=== PATIENT | male | born 1990 | race Caucasian/White ===

== ENCOUNTER 2018-01-01 06:11 | Emergency (ER) | payer BC ==
[2018-01-01 06:29] VITALS: BP 155/98; PULSE 91; O2SAT 98
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
[2018-01-01 07:27] LABS: Appearance CLEAR (CLEAR); Bilirubin NEGATIVE (NEGATIVE); Blood NEGATIVE Ery/ul (0-5); Glucose NEGATIVE (NEGATIVE); Ketones NEGATIVE (NEGATIVE); Leukocyte Esterase NEGATIVE (NEGATIVE); Nitrite NEGATIVE (NEGATIVE); Protein,Urine Dip NEGATIVE (Negative); Specific Gravity 1.019 (1.005-1.025); Urobilinogen NEGATIVE mg/dL (0-1)
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
== END 2018-01-01 07:57 | disposition home or self-care (01) ==
LOC: ED 06:11
DX: S70.01XA Contusion of right hip, initial encounter (principal); S70.11XA Contusion of right thigh, initial encounter; R10.31 Right lower quadrant pain; V40.5XXA Car driver injured in collision with pedestrian or animal in traffic accident, initial encounter
CPT/HCPCS: 72170; 73552; 81001; 99284

== ENCOUNTER 2018-09-26 00:51 | Emergency (ER) | payer BC | END 2018-09-26 03:02 | disposition home or self-care (01) | LOC: ED 00:51 ==

== ENCOUNTER 2019-05-29 19:25 | Emergency (ER) | payer BC ==
--- NOTE | 2019-05-29 19:53 | ERPHSYRPT ---
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; he has chronic allergy symptoms and thinks this may be his resp symptoms including chest tightness he has had beforebut now has slight temp in 99 range; He denies family hx of ht dx or known CAD himself, but has hptn and some conducting abn on EKGgiving cardiac score of 2 ; Activities at Onset: none Severity of Dyspnea-Max: moderate Severity of Dyspnea-Current: moderate Possible Cause: occasional episodes, allergen exposure Modifying Factors: Improves With: coughing Associated Symptoms: cough, chest pain/discomfort International travel in last 2 weeks: No Allergies/Adverse Reactions: No Known Drug Allergies Allergy (Verified 05/29/19 20:05) Home Medications: Lisinopril 10 mg [Zestril 10 MG] 10 mg PO DAILY 05/29/19 [History] Sertraline HCl 50 mg [Zoloft 50 mg Tablet] 50 mg PO DAILY 05/29/19 [History] Hx Tetanus, Diphtheria Vaccination/Date Given: Yes Hx Influenza Vaccination/Date Given: No Hx Pneumococcal Vaccination/Date Given: No Travel Risk - International Travel Have you traveled outside of the country in past 3 weeks: No (N) Have you or anyone close to you been diagnosed with or: No Do your reside in a community with a known COVID-19 case?: Yes If Yes where:: [facility] - Coronavirus Screening Symptoms experienced: respiratory symptoms (i.e.Cought,shortness of breath) - Review of Systems Constitutional: Fever, No Chills Eyes: No Symptoms Ears, Nose, & Throat: No Symptoms, Nose Congestion Respiratory: Cough, Dyspnea, No Stridor, No Wheezing Cardiac: No Chest Pain, No Edema, No Syncope Abdominal/Gastrointestinal: No Abdominal Pain, No Nausea, No Vomiting, No Diarrhea Genitourinary Symptoms: No Dysuria Musculoskeletal: No Back Pain, No Neck Pain Skin: No Rash Neurological: No Dizziness, No Focal Weakness, No Sensory Changes Psychological: No Symptoms Endocrine: No Symptoms All Other Systems: Reviewed and Negative - Past Medical History Pertinent Past Medical History: Yes Neurological History: No Pertinent History ENT History: No Pertinent History Cardiac History: Hypertension Respiratory History: No Pertinent History Endocrine Medical History: No Pertinent History Musculoskeletal History: No Pertinent History GI Medical History: No Pertinent History History: No Pertinent History Psycho-Social History: Anxiety, Depression Male Reproductive Disorders: No Pertinent History - Past Surgical History Past Surgical History: Yes Genitourinary: No Pertinent History Musculoskeletal: Other Male Surgical History: No Pertinent History Other Surgical History: Lymph node removal of right breast, carpal tunnel surgery left wrist - Social History Smoking Status: Never smoker Exposure to second hand smoke: No Drug Use: none Patient Lives Alone: No - Nursing Vital Signs Nursing Vital Signs: Initial Vital Signs Temperature 99.2 F 05/29/19 19:26 Pulse Rate 87 05/29/19 19:26 Respiratory Rate 18 05/29/19 19:26 Blood Pressure 148/97 05/29/19 19:26 O2 Sat by Pulse Oximetry 98 05/29/19 19:26 Pain Scale Pain Intensity 0 - Physical Exam General Appearance: no apparent distress, alert Eye Exam: PERRL/EOMI Ears, Nose, Throat Exam: nasal congestion Neck Exam: normal inspection, supple Respiratory Exam: normal breath sounds, lungs clear, airway intact, No crackles/ rales, No rhonchi, No wheezing, No stridor Cardiovascular/Chest Exam: normal heart sounds, regular rate/rhythm Abdominal/Gastrointestinal Exam: soft, No tenderness, No distention, No mass Extremity Exam: non-tender, normal range of motion, normal inspection, no calf tenderness, no pedal edema Peripheral Pulses Exam: carotid (R): 2+, carotid (L): 2+, femoral (R): 2+, femoral (L): 2+, dorsalis-pedis (R): 2+, dorsalis-pedis (L): 2+ Neurologic Exam: alert, oriented x 3, cooperative, manager of compliance II-XII nml as tested, sensation nml, No motor deficits Skin Exam: normal color, warm, No dry SpO2 Interpretation: normal O2 Delivery: Room Air - Course Nursing assessment & vital signs reviewed: Yes EKG Interpreted by Me: NORMAL AXIS, LAFB, Right Bundle Branch Block - Radiology Exams Chest X-ray Interpretation: Reviewed by me, Infiltrates (mild patchy bilateral infiltrates vs granulomata) Ordered Tests: Active Orders 24 hr Category Date Time Status [employer] Work[employer] STAT Care 05/29/19 20:02 Active EKG-ER Only STAT Care 05/29/19 20:02 Active IV Insertion STAT Care 05/29/19 20:01 Active IV Insertion-2nd Peripheral STAT Care 05/29/19 20:01 Active Isolation, Initiate & Maintain Q12H Care 05/29/19 20:05 Active Pulse Oximetry (ED) STAT Care 05/29/19 19:55 Active CHEST 1 VIEW (PORTABLE) Stat Exams 05/29/19 19:57 Taken CBC W DIFF Stat Lab 05/29/19 20:04 Completed CMP Stat Lab 05/29/19 20:04 Completed D-DIMER QUANTITATIVE Stat Lab 05/29/19 20:04 Completed NT PRO BNP Routine Lab 05/29/19 20:04 Completed TROPONIN Q3H Lab 05/29/19 20:04 Completed TROPONIN Q3H Lab 05/29/19 23:00 Ordered TROPONIN Q3H Lab 05/30/19 02:00 Ordered TROPONIN Q3H Lab 05/30/19 05:00 Ordered TROPONIN Q3H Lab 05/30/19 08:00 Ordered Medication Summary Discontinued Medications Generic Name Dose Route Start Last Admin Trade Name Lonnieq PRN Reason Stop Dose Admin Azithromycin 500 mg 05/29/19 20:44 05/29/19 20:46 Zithromax 250 Mg Tablet PO 05/29/19 20:45 500 mg STAT ONE Administration Azithromycin Confirm 05/29/19 20:45 Zithromax 250 Mg Tablet Administered 05/29/19 20:46 Dose 500 mg .ROUTE .STK-MED ONE Lab/Rad Data: Laboratory Result Diagrams 05/29/19 20:04 05/29/19 20:04 Laboratory Results 05/29/19 05/29/19 05/29/19 Range/Units 20:04 20:04 20:04 WBC (4.0-10.5) K/mm3 RBC (4.1-5.6) M/mm3 Hgb (12.5-18.0) gm/dl Hct (42-50) % MCV (78-100) fl MCH (26-32) pg MCHC (32-36) g/dl RDW (11.5-14.0) % Plt Count (150-450) K/mm3 MPV (7.5-11.0) fl Gran % (36.0-66.0) % Eos # (Auto) (0-0.5) Absolute Lymphs (auto) (1.0-4.6) Absolute Monos (auto) (0.0-1.3) Lymphocytes % (24.0-44.0) % Monocytes % (0.0-12.0) % Eosinophils % (0.00-5.0) % Basophils % (0.0-0.4) % Absolute Granulocytes (1.4-6.9) Basophils # (0-0.4) D-Dimer (215-500) ng/mL Sodium 142 (137-145) mmol/L Potassium 3.7 (3.5-5.1) mmol/L Chloride 105 (98-107) mmol/L Carbon Dioxide 28 (22-30) mmol/L Anion Gap 12.9 (5-15) MEQ/L BUN 16 (9-20) mg/dL Creatinine 1.11 (0.66-1.25) mg/dL Estimated GFR > 60.0 ML/MIN Glucose 99 (74-106) mg/dL Calcium 9.6 (8.4-10.2) mg/dL Total Bilirubin 0.40 (0.2-1.3) mg/dL AST 27 (17-59) U/L ALT 39 (0-50) U/L Alkaline Phosphatase 49 (38-126) U/L Troponin I (0.000-0.034) ng/mL NT-Pro-B Natriuret Pep (0-450) pg/mL Serum Total Protein 7.9 (6.3-8.2) g/dL Albumin 4.5 (3.5-5.0) g/dL Influenza Type A Ag NEGATIVE (NEGATIVE) Influenza Type B Ag NEGATIVE (NEGATIVE) RSV (PCR) NEGATIVE (Negative) Group A Strep Antibody NOT DETECTED (NEGATIVE) 05/29/19 05/29/19 05/29/19 Range/Units 20:04 20:04 20:04 WBC 6.1 (4.0-10.5) K/mm3 RBC 5.30 (4.1-5.6) M/mm3 Hgb 16.3 (12.5-18.0) gm/dl Hct 46.9 (42-50) % MCV 88.5 (78-100) fl MCH 30.8 (26-32) pg MCHC 34.8 (32-36) g/dl RDW 13.1 (11.5-14.0) % Plt Count 202 (150-450) K/mm3 MPV 8.8 (7.5-11.0) fl Gran % 47.7 (36.0-66.0) % Eos # (Auto) 0.20 (0-0.5) Absolute Lymphs (auto) 2.34 (1.0-4.6) Absolute Monos (auto) 0.60 (0.0-1.3) Lymphocytes % 38.6 (24.0-44.0) % Monocytes % 9.9 (0.0-12.0) % Eosinophils % 3.3 (0.00-5.0) % Basophils % 0.5 (0.0-0.4) % Absolute Granulocytes 2.90 (1.4-6.9) Basophils # 0.03 (0-0.4) D-Dimer 243 (215-500) ng/mL Sodium (137-145) mmol/L Potassium (3.5-5.1) mmol/L Chloride (98-107) mmol/L Carbon Dioxide (22-30) mmol/L Anion Gap (5-15) MEQ/L BUN (9-20) mg/dL Creatinine (0.66-1.25) mg/dL Estimated GFR ML/MIN Glucose (74-106) mg/dL Calcium (8.4-10.2) mg/dL Total Bilirubin (0.2-1.3) mg/dL AST (17-59) U/L ALT (0-50) U/L Alkaline Phosphatase (38-126) U/L Troponin I < 0.012 (0.000-0.034) ng/mL NT-Pro-B Natriuret Pep 19.3 (0-450) pg/mL Serum Total Protein (6.3-8.2) g/dL Albumin (3.5-5.0) g/dL Influenza Type A Ag (NEGATIVE) Influenza Type B Ag (NEGATIVE) RSV (PCR) (Negative) Group A Strep Antibody (NEGATIVE) - Progress Progress: improved, re-examined Air Movement: good Progress Note: 05/29/19 20:56 notified ID nurse for protocol and it is deemed best to wait another day and see resp clinic friday for swab and quarantine until then- will start Z dunia due to slightly new infiltrate on CXR . Blood Culture(s) Obtained: No Antibiotics given: Yes Counseled pt/family regarding: lab results, diagnosis, need for follow-up, rad results - Departure Departure Disposition: Home Clinical Impression: Pneumonia Condition: Good Critical Care Time: No Referrals: МАРИЯ ASHFORD, ESTEFANÍA [Primary Care Provider] - Instructions: Pneumonia, Adult (DC), Coronavirus Disease 2019 (COVID-19) (DC) Additional Instructions: we have not tested for or diagnosed covid but are providing that handout for information as you are at risk and may be tested for that at resp clinic this week in followup there if indicated - it was determined by our resp consulting protocol that it is too early to test today. You have some chronic scaring in the lung but some new changes which also may be a pneumonia so we are starting an antibiotic for this; You must quarantine according to instruction until cleared by your PCP and as further determined in consult at resp clinic. return meantime if not improving or concerning symptoms meantime. Prescriptions: Azithromycin 250 mg [Zithromax 250 MG TABLET] 250 mg PO ZPACK #6 tablet
[2019-05-29 20:11] LABS: BASOPHIL % 0.5 % (0.0-0.4); Basophil (Absolute #) 0.03 (0-0.4); Eosinophil % 3.3 % (0.00-5.0); Hematocrit 46.9 % (42-50); Hemoglobin 16.3 gm/dl (12.5-18.0); Lymphocyte (Absolute #) 2.34 (1.0-4.6); Lymphocytes % 38.6 % (24.0-44.0); Mean Cell Volume 88.5 fl (78-100); Mean Corpuscular Hemoglobin 30.8 pg (26-32); Mean Corpuscular Hgb Concent. 34.8 g/dl (32-36); Mean Platelet Volume 8.8 fl (7.5-11.0); Monocytes % 9.9 % (0.0-12.0); Neutrophil % 47.7 % (36.0-66.0); Platelet Count 202 K/mm3 (150-450); Red Cell Distribution Width 13.1 % (11.5-14.0); White Blood Count 6.1 K/mm3 (4.0-10.5)
[2019-05-29 20:25] LABS: ALBUMIN 4.5 g/dL (3.5-5.0); ALKALINE PHOSPHATASE 49 U/L (38-126); ANION GAP 12.9 MEQ/L (5-15); BLOOD UREA NITROGEN 16 mg/dL (9-20); CHLORIDE 105 mmol/L (98-107); Calcium 9.6 mg/dL (8.4-10.2); Carbon Dioxide 28 mmol/L (22-30); Creatinine 1 1.11 mg/dL (0.66-1.25); Glucose 99 mg/dL (74-106); Potassium 3.7 mmol/L (3.5-5.1); SGOT/AST 27 U/L (17-59); SGPT/ALT 39 U/L (0-50); SODIUM 142 mmol/L (137-145); Total Protein 7.9 g/dL (6.3-8.2)
[2019-05-29 20:37] LABS: NT PRO BNP 19.3 pg/mL (0-450)
[2019-05-29 20:41] LABS: INFLUENZA A NEGATIVE (NEGATIVE); INFLUENZA B NEGATIVE (NEGATIVE); RESPIRATORY SYNCTIAL VIRUS NEGATIVE (Negative)
[2019-05-29 20:44] LABS: TROPONIN < 0.012 ng/mL (0.000-0.034)
[2019-05-29] MEDS ORDERED: Zithromax 250 MG TABLET PO ONE (20:44)
[2019-05-29] MEDS ORDERED: Zithromax 250 MG TABLET ONE (20:45)
[2019-05-29 21:29] VITALS: BP 121/93; PULSE 80; O2SAT 100
--- NOTE | 2019-05-30 07:56 | XRAY ---
Indication: Chest pain, short of breath, and fever. Comparison: September 26, 2018. Portable apical lordotic chest again demonstrates normal heart and lungs with incidental left midlung calcified granuloma. Bony thorax intact. No new/acute findings.
== END 2019-05-29 21:37 | disposition home or self-care (01) ==
LOC: ED 19:25
DX: J18.9 Pneumonia, unspecified organism (principal); R05 Cough; R07.9 Chest pain, unspecified; Z79.899 Other long term (current) drug therapy; R06.02 Shortness of breath; I10 Essential (primary) hypertension
CPT/HCPCS: 36000; 36415; 71045; 80053; 83880; 84484; 85025; 85379; 87631; 87651; 93005; 93041; 94760; 99284; A9270-GY